=== PATIENT | male | born 1955 | race Caucasian/White ===

== ENCOUNTER 2022-08-10 12:02 | Emergency (ER) | payer OTHER, MEDICAID ==
[~2022-08-10] VITALS: Ht 157.5 cm; Wt 49.9 kg
[2022-08-10 12:21] VITALS: BP_SYST 140
--- NOTE | 2022-08-10 12:26 | NUR ---
Placed in room 02 . Placed on nut feeder, blood pressure machine and pulse oximeter. To gown for exam. Side rails up. Report given to TRACY GONZALEZ.
--- NOTE | 2022-08-10 12:43 | NUR ---
PT BIB SON, AWAKE AND ALERT AOX4, NO SOB OR DISTRESS. PT WENT TO HIS PCP FOR DISCOLORARTION TO RT FOOT, AND WAS TOLD TO COME TO ER. FOOT LOOD RED AND SLIGHTEN SWOOLEN, COLD TO TOUCH. PT HAS BIG TOE AND SECOND TOE AMPUTATED DUE TO DIABETRIC ULCER. PT HAS HX OF DM2, HLD.
--- NOTE | 2022-08-10 12:47 | NUR ---
MD DR LION AT BEDSIDE
[2022-08-10 13:34] LABS: BASOPHILS # (AUTO) 0.1 K/uL (0.0-0.2); BASOPHILS % (AUTO) 0.9 % (0.0-2.0); EOSINOPHILS # (AUTO) 0.1 K/uL (0.0-0.4); EOSINOPHILS % (AUTO) 2.2 % (0.0-4.0); HEMATOCRIT 32.8 % (36-54); HEMOGLOBIN 10.9 g/dL (14.0-18.0); LYMPHOCYTES # (AUTO) 1.5 K/uL (1.0-5.5); LYMPHOCYTES % (AUTO) 22.9 % (20.5-51.5); MEAN CORPUSCULAR HEMOGLOBIN 28 pg (27-31); MEAN CORPUSCULAR HGB CONC 33 % (32-36); MEAN CORPUSCULAR VOLUME 84 fL (79.0-98.0); MONOCYTES # (AUTO) 0.3 K/uL (0.0-1.0); MONOCYTES % (AUTO) 5.3 % (1.7-9.3); NEUTROPHILS # (AUTO) 4.5 K/uL (1.8-7.7); NEUTROPHILS % (AUTO) 68.7 % (40.0-70.0); PLATELET COUNT (AUTO) 247 K/uL (130-430); RED CELL DISTRIBUTION WIDTH 15.3 % (9.0-15.0); WHITE BLOOD COUNT (AUTO) 6.5 K/uL (4.8-10.8)
[2022-08-10 14:02] LABS: CALCIUM 8.2 mg/dL (8.4-11.0); CREATININE 0.71 mg/dL (0.55-1.30)
[2022-08-10 14:06] LABS: C-REACTIVE PROTEIN QUANT 0.3 mg/dL (0-0.5); TOTAL BILIRUBIN 0.2 mg/dL (0.0-1.0)
[2022-08-10] MEDS ORDERED: CLIN-22 PO (14:11)
[2022-08-10 14:29] VITALS: BP_SYST 125
--- NOTE | 2022-08-10 14:30 | NUR ---
Patient given written and verbal discharge instructions and verbalizes understanding. ER MD DR LION discussed with patient the results and treatment provided. Patient in stable condition. ID arm band removed. Rx of CLINDAMYCIN given. Patient educated on pain management and to follow up with PMD. Pain Scale 0/10. Opportunity for questions provided and answered. Medication side effect fact sheet provided.
== END 2022-08-10 14:30 | disposition home or self-care (01) ==
LOC: SED 12:02
DX: E11.621 Type 2 diabetes mellitus with foot ulcer (principal); M79.671 Pain in right foot; Z79.899 Other long term (current) drug therapy
CPT/HCPCS: 36415; 80053; 83605; 85025; 86140; 99284